=== PATIENT | male | born 1995 | race Caucasian/White ===

== ENCOUNTER 2022-11-30 17:04 | Inpatient (IN) | payer SELFPAY ==
[2022-11-30] MEDS ORDERED: Sodium Chloride 0.9% 1,000 ML IV ONE ×2 (17:24→17:27)
[2022-11-30] MEDS ORDERED: Ketorolac 30 MG/ML SDV IVPUSH ONE (17:24)
[2022-11-30] MEDS ORDERED: Morphine 4 MG/ML VIAL IVPUSH ONE ×2 (17:25→17:55)
[2022-11-30] MEDS ORDERED: Ondansetron 4 MG/2 ML SDV IVPUSH ONE (17:25)
[2022-11-30] MEDS ORDERED: Morphine 4 MG/ML VIAL ONE (17:35)
[2022-11-30 17:44] LABS: ESTIMATED GFR 125 mL/min (>60)
[2022-11-30] MEDS ORDERED: Iopamidol 755 Mg/ML 100 ML Bottle IV ONE (17:47)
[2022-11-30] MEDS ORDERED: diphenhydrAMINE 50 MG/ML SDV IVPUSH ONE (17:55)
[2022-11-30] MEDS ORDERED: Ondansetron 4 MG/2 ML SDV IVPUSH PRN (19:35)
[2022-11-30] MEDS: Dextrose 5%-0.45% NaCl 1,000 ML IV SCH (20:02)
[2022-11-30] MEDS: Morphine 4 MG/ML VIAL IVPUSH PRN ×2 (20:45→23:58)
[2022-11-30] MEDS: HYDROmorphone 2 MG/ML SDV IVPUSH PRN (22:39)
[2022-11-30] MEDS: Sodium Chloride 0.9% 10 ML Syringe FLUSH PRN (22:41)
[2022-12-01] MEDS: HYDROmorphone 2 MG/ML SDV IVPUSH PRN ×5 (01:54→22:42)
[2022-12-01] MEDS: Sodium Chloride 0.9% 10 ML Syringe FLUSH PRN ×3 (01:56→10:11)
[2022-12-01] MEDS: Morphine 4 MG/ML VIAL IVPUSH PRN ×2 (04:02→08:14)
[2022-12-01] MEDS: Dextrose 5%-0.45% NaCl 1,000 ML IV SCH (04:11)
[2022-12-01 06:47] LABS: ESTIMATED GFR 121 mL/min (>60)
[2022-12-01] MEDS ORDERED: LORazepam 2 MG/ML SDV IVPUSH PRN (07:51)
[2022-12-01] MEDS ORDERED: LORazepam 1 MG Tab PO SCH (08:00)
[2022-12-01] MEDS: LORazepam 2 MG/ML SDV IVPUSH PRN ×2 (09:28→16:44)
[2022-12-01] MEDS: Thiamine 200 MG/2 ML MDV IV SCH (10:08)
[2022-12-01] MEDS ORDERED: Folic Acid 50 MG/10 ML MDV IV SCH (10:15)
[2022-12-01] MEDS ORDERED: Sodium Chloride 0.9% 1,000 ML IV SCH (10:30)
[2022-12-01] MEDS ORDERED: Magnesium Sulfate/Water 50 ML IV ONE (11:00)
[2022-12-01] MEDS: Pantoprazole 40 MG Vial IVPUSH SCH (11:47)
[2022-12-01] MEDS: Sodium Chloride 0.9% 1,000 ML IV SCH ×3 (11:50→20:12)
[2022-12-02] MEDS: Sodium Chloride 0.9% 1,000 ML IV SCH ×2 (00:30→04:42)
[2022-12-02] MEDS: LORazepam 2 MG/ML SDV IVPUSH PRN (00:42)
[2022-12-02] MEDS: HYDROmorphone 2 MG/ML SDV IVPUSH PRN ×2 (03:02→06:13)
[2022-12-02 06:42] LABS: ESTIMATED GFR 130 mL/min (>60)
[2022-12-02] MEDS ORDERED: Polyethylene Glycol 3350 Powder 17 GM Packet PO ONE (08:17)
[2022-12-02] MEDS ORDERED: Nicotine 21 MG/24 Hr Patch TRDERM SCH ×2 (09:00)
[2022-12-02] MEDS ORDERED: Iopamidol 755 Mg/ML 100 ML Bottle IV ONE (09:10)
[2022-12-02] MEDS: Sodium Chloride 0.9% 10 ML Syringe FLUSH PRN (09:21)
[2022-12-02] MEDS: Thiamine 200 MG/2 ML MDV IV SCH (09:22)
[2022-12-02] MEDS: Pantoprazole 40 MG Vial IVPUSH SCH (10:53)
== END 2022-12-02 16:30 | disposition left against medical advice (07) | DRG 440 ==
LOC: FB.ED 17:04 → FB.MS 19:29 → OBSVTOIN 12-01 10:20
PROVIDERS: ADMIT Student in an Organized Health Care Education/Training Program; ATTEND Student in an Organized Health Care Education/Training Program
DX: K85.90 Acute pancreatitis without necrosis or infection, unspecified (principal); E80.6 Other disorders of bilirubin metabolism; K59.03 Drug induced constipation; K86.89 Other specified diseases of pancreas; F10.10 Alcohol abuse, uncomplicated; F17.200 Nicotine dependence, unspecified, uncomplicated; R03.0 Elevated blood-pressure reading, without diagnosis of hypertension
CPT/HCPCS: 36415; 74177; 80048; 80053; 80061; 80307; 81001; 83605; 83690; 83735; 85025; 86140; 99222; 99238; 99285; A9270-GY; C9113; J1170; J1200; J1885; J2060; J2270; J2405; J3411; J3475; J3490; J7030; J7042; Q9967